=== PATIENT | female | born 1995 | race Caucasian/White ===

== ENCOUNTER 2017-01-05 10:59 | Emergency (ER) | payer SELFPAY ==
[2017-01-05 14:06] LABS: BILIRUBIN,URINE NEGATIVE (NEG); GLUCOSE,URINE NEGATIVE (NEG); NITRITE,URINE NEGATIVE (NEG); PROTEIN,URINE NEGATIVE (NEG-TRACE); UROBILINOGEN,URINE 0.2 mg/dL (0.2 mg/dL)
[2017-01-05 14:31] LABS: RBC,URINE 20-40 /HPF (0-2)
[2017-01-05 14:32] LABS: BACTERIA,URINE 0 /HPF (0-FEW); SQUAMOUS EPITHELIAL CELL,UR FEW /LPF; WBC,URINE 0 /HPF (0-4)
[2017-01-05] MEDS ORDERED: IV NORMAL SALINE 1000ML BAG 1,000 ML IV ONE (14:45)
[2017-01-05 14:54] LABS: BASO % 1 % (0-3); EOS % 0 % (0-3); LYMPH # 1.3 x10^3/uL (1.0-4.8); LYMPH % 28 % (24-48); MEAN CORPUSCULAR HEMOGLOBIN 29 pg (25-35); MEAN CORPUSCULAR HGB CONC 31 g/dL (31-37); MEAN CORPUSCULAR VOLUME 96 fL (79-100); MONO % 4 % (0-9); NEUT % 67 % (31-73); PLATELET COUNT 117 x10^3/uL (140-400); RED BLOOD COUNT 1.11 x10^6/uL (3.50-5.40); RED CELL DISTRIBUTION WIDTH 24.4 % (11.5-14.5); WHITE BLOOD COUNT 4.6 x10^3/uL (4.0-11.0)
[2017-01-05 14:59] LABS: CALCIUM 7.8 mg/dL (8.5-10.1); CREATININE 0.5 mg/dL (0.6-1.0); GFR 155.7; POTASSIUM 3.2 mmol/L (3.5-5.1)
[2017-01-05 15:02] LABS: HEMATOCRIT 10.7 % (36.0-47.0); HEMOGLOBIN 3.3 g/dL (12.0-15.5)
[2017-01-05] MEDS ORDERED: COAGULATION FACTOR VIIA,RECOMB 1 MG VIAL. IV ONE (15:30)
--- NOTE | 2017-01-05 15:32 | PHYS DOC ---
Past Medical History Past Medical History: Other Additional Past Medical Histor: thrombocytopenia, hemophilia Past Surgical History: No Surgical History Alcohol Use: None Drug Use: None Adult General Chief Complaint Chief Complaint: MULTIPLE COMPLAINTS HPI HPI 21-year-old female presents with ongoing vaginal bleeding that is really been ongoing for the last week. Patient was initially admitted several days ago to [facility] for this issue. 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 In the hospital on her last day she was seen by hematology and given multiple treatments factor VII as well as platelet plasmapheresis. Upon discharge her bleeding was fairly controlled but has now reoccurred over the last several days and the patient is also significantly lightheaded and dizzy and mildly short of breath. She states the bleeding is significant and all coming from the vagina. Pt does complain of some mild suprapubic tenderness. Review of Systems Review of Systems Constitutional: Denies fever or chills [] Eyes: Denies change in visual acuity, redness, or eye pain [] HENT: Denies nasal congestion or sore throat [] Respiratory: Denies cough or shortness of breath [] Cardiovascular: No additional information not addressed in HPI [] GI: Denies abdominal pain, nausea, vomiting, bloody stools or diarrhea [] : Denies dysuria or hematuria [] Musculoskeletal: Denies back pain or joint pain [] Integument: Denies rash or skin lesions [] Neurologic: Denies headache, focal weakness or sensory changes [] Endocrine: Denies polyuria or polydipsia [] Current Medications Current Medications Current Medications Medications (Trade) Dose Ordered Sig/Janae Start Time Stop Time Status Last Admin Dose Admin Carbamazepine (Tegretol) 300 mg 1X STAT 01/05/17 16:52 01/05/17 16:55 DC 01/05/17 17:04 300 MG Factor IX (Pha) (Novoseven Rt) 5 mg 1X ONCE 01/05/17 15:30 01/05/17 15:39 DC 01/05/17 16:26 5 MG Ondansetron HCl (Zofran) 4 mg 1X ONCE 01/05/17 17:30 01/05/17 17:31 DC 01/05/17 17:30 4 MG Sodium Chloride (Iv Sodium Chloride 0.9% 1000ml Bag) 1,000 ml @ 1,000 mls/hr 1X ONCE 01/05/17 14:45 01/05/17 15:44 DC 01/05/17 16:01 1,000 MLS/HR Allergies Allergies Allergies Coded Allergies Type Severity Reaction Last Updated Verified No Known Drug Allergies 01/01/17 No Physical Exam Physical Exam Constitutional: Well developed, well nourished, moderate distress, mildly toxic in appearance. [] HENT: Normocephalic, atraumatic, bilateral external ears normal, oropharynx moist, no oral exudates, nose normal. [] Eyes: PERRLA, EOMI, conjunctiva normal, no discharge. [] Neck: Normal range of motion, no tenderness, supple, no stridor. [] Cardiovascular:Heart rate tachycardic with regular rhythm, no murmur [] Lungs & Thorax: Bilateral breath sounds clear to auscultation [] Abdomen: Bowel sounds normal, soft, mild suprapubic tenderness, no masses, no pulsatile masses. [] Skin: Warm, dry, no erythema, no rash, pale. [] Back: No tenderness, no CVA tenderness. [] Extremities: No tenderness, no cyanosis, no clubbing, ROM intact, no edema. [] Neurologic: Alert and oriented X 3, normal motor function, normal sensory function, no focal deficits noted. [] Psychologic: Affect normal, judgement normal, mood normal. [] Current Patient Data Vital Signs Vital Signs Date Time Temp Pulse Resp B/P Pulse Ox O2 Delivery O2 Flow Rate FiO2 01/05/17 17:20 99.9 118 16 103/54 99.9 01/05/17 17:05 94 Room Air Lab Values Laboratory Tests Test 01/05/17 13:50 01/05/17 13:52 01/05/17 14:40 Urine Collection Type Unknown Urine Color Yellow Urine Clarity Cloudy Urine pH 6.0 Urine Specific Edison 1.020 Urine Protein Negativemg/dL (NEG-TRACE) Urine Glucose (UA) Negativemg/dL (NEG) Urine Ketones (Stick) Negativemg/dL (NEG) Urine Blood Large (NEG) Urine Nitrite Negative (NEG) Urine Bilirubin Negative (NEG) Urine Urobilinogen Dipstick 0.2mg/dL (0.2 mg/dL) Urine Leukocyte Esterase Negative (NEG) Urine RBC 20-40/HPF (0-2) Urine WBC 0/HPF (0-4) Urine Squamous Epithelial Cells Few/LPF Urine Bacteria 0/HPF (0-FEW) Urine Mucus Marked/LPF POC Urine HCG, Qualitative hcg negative (Negative) White Blood Count 4.6x10^3/uL (4.0-11.0) Red Blood Count 1.11x10^6/uL (3.50-5.40) L Hemoglobin 3.3g/dL (12.0-15.5) Hematocrit 10.7% (36.0-47.0) Mean Corpuscular Volume 96fL (79-100) # Mean Corpuscular Hemoglobin 29pg (25-35) Mean Corpuscular Hemoglobin Concent 31g/dL (31-37) Red Cell Distribution Width 24.4% (11.5-14.5) H Platelet Count 117x10^3/uL (140-400) L Neutrophils (%) (Auto) 67% (31-73) Lymphocytes (%) (Auto) 28% (24-48) Monocytes (%) (Auto) 4% (0-9) Eosinophils (%) (Auto) 0% (0-3) Basophils (%) (Auto) 1% (0-3) Neutrophils # (Auto) 3.0x10^3uL (1.8-7.7) Lymphocytes # (Auto) 1.3x10^3/uL (1.0-4.8) Monocytes # (Auto) 0.2x10^3/uL (0.0-1.1) Eosinophils # (Auto) 0.0x10^3/uL (0.0-0.7) Basophils # (Auto) 0.0x10^3/uL (0.0-0.2) Platelet Estimate Decreased (ADEQUATE) Polychromasia Slight Anisocytosis Mod Schistocytes Occ Sodium Level 142mmol/L (136-145) Potassium Level 3.2mmol/L (3.5-5.1) L Chloride Level 109mmol/L (98-107) H Carbon Dioxide Level 26mmol/L (21-32) Anion Gap 7 (6-14) Blood Urea Nitrogen 4mg/dL (7-20) L Creatinine 0.5mg/dL (0.6-1.0) L Estimated GFR (Cockcroft-Gault) 155.7 Glucose Level 107mg/dL (70-99) H Calcium Level 7.8mg/dL (8.5-10.1) L Laboratory Tests 01/05/17 14:40 Laboratory Tests 01/05/17 14:40 EKG EKG [] Radiology/Procedures Radiology/Procedures Pelvic ultrasound demonstrated the following: Fluid is seen within the vaginal vault. Normal sonographic evaluation of the uterus. Follicular cysts of both ovaries are seen. The ovaries are not well visualized in this study. The largest cyst is seen on the right side measuring 2.3 cm. Transvaginal exam was not performed. No free fluid is seen within the cul-de-sac. Course & Med Decision Making Course & Med Decision Making Pertinent Labs and Imaging studies reviewed. (See chart for details) This 29-year-old female with ongoing vaginal bleeding has a hemoglobin here of 3.3. Patient was typed and crossed for multiple units of blood as well as platelets. A dose of 5 mg of factor VII was also administered. 2 units of packed red cells were administered. Her case was discussed with the change management facilitator who stated the patient would be suitable for transfer to [facility] for further evaluation and treatment for her ongoing vaginal bleeding and severe anemia which is secondary to her bleeding disorder. Additionally there is need to transfer the patient because of the inability to provide her enough factor VII replacement in our hospital. The amount of Factor VII available in our hospital was insufficient for this patient. Her case was initially discussed the hospitalist, Dr. Gibbons, who agreed that the patient should be transferred for further evaluation and treatment. Dr. Adam at [facility] agreed to accept the patient to the ICU with hematology consult. The patient was transferred emergently for further evaluation and treatment. Dragon Disclaimer Dragon Disclaimer This electronic medical record was generated, in whole or in part, using a voice recognition dictation system. Departure Departure Impression: Primary Impression: Vaginal bleeding Additional Impression: Severe anemia Disposition: 02 TRANSFER T-[facility] Admitting Physician: Other Condition: STABLE Referrals: NO PCP (PCP) Scripts No Active Prescriptions or Reported Meds Problem Qualifiers PERLITA FARIAS DO Jan 05, 2017 15:31
--- NOTE | 2017-01-05 15:33 | RAD ---
Transabdominal sonogram of the pelvis Clinical indications: Severe pelvic pain. Hematuria. Hemoglobin is 3. Findings: The uterus is anteverted in position. The longitudinal and AP and transverse dimensions of the uterus are 8.4 cm and 3.1 cm and 4.5 cm respectively. The endometrial canal measures 6.9 mm in thickness. No uterine mass or fibroid is seen. Fluid is seen within the vaginal vault and vaginal fornix around the cervix. The left ovary and right ovary are visualized transversely and bilateral cysts are seen. The ovaries are not well visualized in the sagittal plane. Transvaginal exam was not performed. IMPRESSION: Fluid is seen within the vaginal vault. Normal sonographic evaluation of the uterus. Follicular cysts of both ovaries are seen. The ovaries are not well visualized in this study. The largest cyst is seen on the right side measuring 2.3 cm. Transvaginal exam was not performed. No free fluid is seen within the cul-de-sac.
[2017-01-05 15:55] VITALS: BP 102/50
[2017-01-05 16:05] VITALS: BP 108/51
[2017-01-05 16:10] VITALS: BP 98/54
[2017-01-05 16:20] VITALS: BP 100/53
[2017-01-05 16:33] LABS: ANISOCYTOSIS MOD; PLT ESTIMATE DECREASED (ADEQUATE); POLYCHROMASIA SLIGHT; SCHISTOCYTES OCC
[2017-01-05] MEDS ORDERED: CARBAMAZEPINE 200 MG TABLET. PO STA (16:52)
[2017-01-05 17:20] VITALS: BP 103/54
[2017-01-05] MEDS ORDERED: ONDANSETRON PF 4 MG/2 ML VIAL. IV ONE (17:30)
== END 2017-01-05 17:57 | disposition short-term general hospital (02) ==
LOC: ER 10:59
DX: N93.9 Abnormal uterine and vaginal bleeding, unspecified (principal); D64.9 Anemia, unspecified; R06.02 Shortness of breath
CPT/HCPCS: 36415; 76856; 80048; 81001; 81025; 85007; 85027; 86850; 86900; 86901; 86920; 96361; 96374; 96375; 99285; J2405; J7030; J7189; P9016